=== PATIENT | male | born 1975 | race Caucasian/White ===

== ENCOUNTER 2022-01-14 12:34 | Emergency (ER) | payer BC ==
[2022-01-14 13:26] LABS: HEMOGLOBIN 16.5 gm/dl (14.0-17.5); RED BLOOD COUNT 5.11 M/UL (4.20-5.50); WHITE BLOOD COUNT 9.8 K/UL (4.5-11.0)
[2022-01-14 13:47] LABS: BUN/CREATININE RATIO 14 (0-10)
[2022-01-14] MEDS ORDERED: ZOFRAN ODT 4 MG4 MG PO (15:09)
[2022-01-14] MEDS ORDERED: PERCOCET 5-3251 EACH PO (15:09)
[2022-01-14] MEDS ORDERED: TORADOL 10 MG T10 MG PO (15:19)
[2022-01-14] MEDS ORDERED: FLOMAX 0.4 MG0.4 MG PO (15:19)
== END 2022-01-14 16:40 | disposition home or self-care (01) ==
LOC: ER1 12:34
PROVIDERS: Physician Assistant
DX: N21.0 Calculus in bladder (principal); K21.9 Gastro-esophageal reflux disease without esophagitis
CPT/HCPCS: 80053; 81001; 83690; 85025; 96374; 96375; 99284; J1885; J2270; J2405; J7030

== ENCOUNTER → 2022-02-02 | Outpatient (CLI) | payer BC ==
[~2022-02-02] MED LIST: FLOMAX 0.4 MG0.4 MG PO; PERCOCET 5-3251 EACH PO; TORADOL 10 MG T10 MG PO; ZOFRAN ODT 4 MG4 MG PO
[2022-02-03 10:17] LABS: CREATININE, URINE 192.1 mg/dL (Not Estab.)
== END ==
LOC: US 01-26 14:00
PROVIDERS: Internal Medicine Nephrology
DX: N20.0 Calculus of kidney (principal); N05.1 Unspecified nephritic syndrome with focal and segmental glomerular lesions
CPT/HCPCS: 81001; 82043; 82570; 84156